=== PATIENT | male | born 1965 | race Caucasian/White ===

== ENCOUNTER 2017-02-23 12:34 | Outpatient (CLI) | payer BC | END 2017-02-23 12:35 | disposition home or self-care (01) | LOC: ULT 12:34 | PROVIDERS: ATTEND Internal Medicine Hematology & Oncology | DX: Z51.11 Encounter for antineoplastic chemotherapy (principal); C15.5 Malignant neoplasm of lower third of esophagus; R11.2 Nausea with vomiting, unspecified; Z51.89 Encounter for other specified aftercare; Z79.899 Other long term (current) drug therapy | CPT/HCPCS: 93306 ==

== ENCOUNTER 2017-08-14 13:46 | Outpatient (CLI) | payer OTHER | END 2017-08-14 13:47 | disposition home or self-care (01) | LOC: ULT 13:46 | PROVIDERS: ATTEND Internal Medicine Hematology & Oncology | DX: C15.5 Malignant neoplasm of lower third of esophagus (principal); I07.1 Rheumatic tricuspid insufficiency; Z79.899 Other long term (current) drug therapy | CPT/HCPCS: 93306 ==

== ENCOUNTER 2018-02-08 03:54 | Emergency (ER) | payer OTHER ==
[2018-02-08] MEDS ORDERED: Ondansetron PF 4 MG/2 ML Vial ONE (04:24)
[2018-02-08 04:54] LABS: Band 26 % (5-11); Hemoglobin 15.3 g/dL (14.0-18.0); Lymphocytes 13 % (21-51); MDiff Complete? YES; Mean Corpuscular HGB CONC 35.1 g/dL (32.0-36.0); Mean Corpuscular Hemoglobin 33.1 pg (27.0-31.0); Mean Corpuscular Volume 94.3 fL (78.0-98.0); Monocytes 13 % (0-10); Neutrophil 47 % (42-75); Platelet Count 175 thou/uL (130-400); RBC Distribution Width 9.7 % (11.5-14.5); Reactive Lymphocytes 1 % (0-10); Red Blood Cell (RBC) Count 4.62 mill/uL (4.70-6.10); White Blood Cell (WBC) Count 7.5 thou/uL (4.8-10.8)
[2018-02-08 04:56] LABS: ALT (SGPT) 24 U/L (8-55); AST (SGOT) 52 U/L (5-34); Albumin 4.5 g/dL (3.5-5.0); Alkaline Phosphatase 50 U/L (40-150); Anion Gap 17 mmol/L (10-20); BUN (Urea Nitrogen) 7 mg/dL (8.4-25.7); Bilirubin, Total 0.7 mg/dL (0.2-1.2); Calc. Creatinine Clearance 0 mL/min (70-130); Calcium 9.4 mg/dL (7.8-10.44); Carbon Dioxide 24 mmol/L (22-29); Chloride 94 mmol/L (98-107); Estimated GFR-MDRD 83; Globulin 3.2 g/dL (2.4-3.5); Glucose 95 mg/dL (70-105); Lipase 20 U/L (8-78); Protein, Total 7.7 g/dL (6.0-8.3); Sodium 131 mmol/L (136-145)
[2018-02-08] MEDS ORDERED: Metoclopramide HCl 10 MG/2 ML VIAL ONE (05:46)
[2018-02-08] MEDS ORDERED: Acetaminophen 500 MG TAB ONE (06:25)
[2018-02-08] MEDS ORDERED: Iopamidol 370 76% 100 ML VIAL ONE (09:00)
--- NOTE | 2018-02-08 09:18 | CT ---
PRELIMINARY REPORT/[facility]/EMERGENTY AFTER-HOURS PROCEDURE CT Abdomen and Pelvis With Intravenous Contrast EXAM DATE/TIME: 02/08/2018 4:37 AM CLINICAL HISTORY: 52 years old, male; Signs and symptoms; Nausea; Prior surgery; Surgery date: 6+ months; Surgery type: Esophageal CA in 2011; Patient HX: Nausea for 3 days with dry heaving, PT unable to vomit due to ken michael in 2011 due to esophageal CA. Hs of appendectomy and vasectomy TECHNIQUE: Axial computed tomography images of the abdomen and pelvis with intravenous contrast. All CT scans at this facility use at least one of these dose optimization techniques: automated expos ure control; mA and/or kV adjustment per patient size (includes targeted exams where dose is matched to clinical indication); or iterative reconstruction. Coronal reformatted images were created and rev iewed. COMPARISON: No relevant prior studies available. FINDINGS: Lower thorax: The visualized portions of the lung bases are normal. ABDOMEN: Liver: There are no focal liver lesions identified. Gallbladder and bile ducts: The gallbladder is normal. There is no evidence of biliary ductal dilatio n. Pancreas: The pancreas appears normal. Spleen: The spleen is normal. Adrenals: The adrenal glands are normal. Kidneys and ureters: The kidneys appear normal. Stomach and bowel: There is gastric pull-through the stomach with debris within the mediastinal segme nt. The duodenum is unremarkable. There is fluid seen throughout the small bowel possibly from enteri tis. Moderate diverticulosis is present in the sigmoid and descending colon. Appendix: No appendix is specifically identified. No associated signs to suggest acute appendicitis. PELVIS: Bladder: The bladder is normal. Reproductive: The prostate gland and seminal vesicles are normal. ABDOMEN and PELVIS: Intraperitoneal space: Normal. No free air. No significant fluid collection. Bones/joints: No acute fracture. No dislocation. Soft tissues: Unremarkable. Vasculature: Normal. No abdominal aortic aneurysm. Lymph nodes: Normal. No enlarged lymph nodes. IMPRESSION: There is fluid seen throughout the small bowel possibly from enteritis. Correlate clinically. Thank you for allowing us to participate in the care of your patient. Dictated and Authenticated by: Martin Daily MD 02/08/2018 6:28 AM Central Time ([place] & [place]) FINAL REPORT: CT ABDOMEN WITH IV CONTRAST CT PELVIS WITH IV CONTRAST: I agree with the preliminary report given by Dr. Daily of [facility]. No evidence of metastatic disease is seen compared to exam of 12-09-16. POS: [facility]
--- NOTE | 2018-02-08 09:19 | CT ---
PRELIMINARY REPORT/[facility]/EMERGENTY AFTER-HOURS PROCEDURE CT Angiography Chest With Intravenous Contrast EXAM DATE/TIME: 02/08/2018 4:37 AM CLINICAL HISTORY: 52 years old, male; Signs and symptoms; Other: Syncope; Prior surgery; Surgery date: 6+ months; Surge ry type: Esophageal surgery due to cancer in 2011; Patient HX: Dry heaving and syncope, abnormal ekg TECHNIQUE: Axial computed tomographic angiography images of the chest with intravenous contrast using CT angiogr aphy protocol. All CT scans at this facility use at least one of these dose optimization techniques: automated expos ure control; mA and/or kV adjustment per patient size (includes targeted exams where dose is matched to clinical indication); or iterative reconstruction. Coronal reformatted images were created and reviewed. MIP reconstructed images were created and reviewed. CONTRAST: 90 ml of [id number] administered intravenously. COMPARISON: No relevant prior studies available. FINDINGS: Tubes, catheters and devices: There is a left-sided portacatheter is in satisfactory position. Pulmonary arteries: There is no evidence of peripheral filling defects within the pulmonary arterial circulation to suggest pulmonary embolism. Aorta: The aorta is normal. There is no evidence of aortic dissection, leak, rupture, or other compli cations. Lungs: There is nonspecific hazy groundglass opacification within the RIGHT upper and lower lobe. Pleural space: Normal. No pneumothorax. No pleural effusion. Heart: Normal. No cardiomegaly. No pericardial effusion. Mediastinum: The trachea is normal. Thyroid: The thyroid gland is normal. Bones/joints: Unremarkable. No acute fracture. Soft tissues: Unremarkable. Lymph nodes: Unremarkable. No enlarged lymph nodes. Stomach and bowel: There is gastric pull through of the stomach. IMPRESSION: There is no CT evidence of acute pulmonary embolism. Post esophageal resection with gastric pull-through of the stomach. Thank you for allowing us to participate in the care of your patient. Dictated and Authenticated by: Martin Daily MD 02/08/2018 6:33 AM Central Time ([place] & [place]) FINAL REPORT CT PULMONARY ANGIOGRAM WITH IV CONTRAST AND 3D POSTPROCESSING: Date: 02/08/18 FINDINGS/IMPRESSION: I agree with the preliminary report given by Sera. POS: [facility]
== END 2018-02-08 07:04 | disposition home or self-care (01) ==
LOC: SCSER 03:54
DX: K52.9 Noninfective gastroenteritis and colitis, unspecified (principal); F41.9 Anxiety disorder, unspecified; F17.210 Nicotine dependence, cigarettes, uncomplicated; Z79.899 Other long term (current) drug therapy
CPT/HCPCS: 71275; 74177; 80053; 83605; 83690; 85025; 93005; 96361; 96374; 96375; J2405; J2765

== ENCOUNTER 2018-02-11 13:46 | Outpatient (CLI) | payer OTHER ==
--- NOTE | 2018-02-11 16:37 | MRI ---
BRAIN MRI WITH AND WITHOUT CONTRAST: DATE: 02-11-18 Comparison: None. History: Syncope, esophageal cancer. Technique: Multiplanar, multisequence MRI images were obtained of the brain with and without contrast . FINDINGS: Motion artifact significantly limits detailed assessment. The diffusion weighted imaging demonstrates no evidence for acute infarction. The axial gradient echo imaging demonstrates no evidence for intracranial hemorrhage. Arterial flow voids at the axial levels of the skull base grossly unremarkable on the T2 weighted vernon ging, limited by motion artifact. No midline shift, mass effect, or ventricular enlargement. Motion limited post contrast imaging demonstrates no abnormal enhancement within the brain parenchyma . Osseous detail is limited on the basis of motion. IMPRESSION: Grossly unremarkable motion limited brain MRI as detailed above. Results were discussed with Harmony Norris at approximately 4 p.m. 02-11-18. Code CR POS: OFF
== END 2018-02-11 13:47 | disposition home or self-care (01) ==
LOC: MRI 13:46
PROVIDERS: ATTEND Internal Medicine Hematology & Oncology
DX: R55 Syncope and collapse (principal); R56.9 Unspecified convulsions; C15.5 Malignant neoplasm of lower third of esophagus; R53.1 Weakness; R42 Dizziness and giddiness; R11.0 Nausea
CPT/HCPCS: 36415; 70553; 80053; 82248; 83615; 84100; 84550

== ENCOUNTER 2018-06-07 12:39 | Outpatient (CLI) | payer OTHER | END 2018-06-07 12:40 | disposition home or self-care (01) | LOC: ULT 12:39 | PROVIDERS: ATTEND Internal Medicine Hematology & Oncology | DX: Z51.11 Encounter for antineoplastic chemotherapy (principal); C15.5 Malignant neoplasm of lower third of esophagus; I08.1 Rheumatic disorders of both mitral and tricuspid valves; Z79.899 Other long term (current) drug therapy | CPT/HCPCS: 93306 ==

== ENCOUNTER 2019-01-04 13:25 | Outpatient (CLI) | payer OTHER | END 2019-01-04 13:26 | disposition home or self-care (01) | LOC: ULT 13:25 | PROVIDERS: ATTEND Internal Medicine Hematology & Oncology | DX: Z51.11 Encounter for antineoplastic chemotherapy (principal); C15.5 Malignant neoplasm of lower third of esophagus; I08.1 Rheumatic disorders of both mitral and tricuspid valves; Z79.899 Other long term (current) drug therapy | CPT/HCPCS: 93306 ==

== ENCOUNTER 2019-07-07 14:41 | Outpatient (CLI) | payer OTHER | END 2019-07-07 14:42 | disposition home or self-care (01) | LOC: ULT 14:41 | PROVIDERS: ATTEND Internal Medicine Hematology & Oncology | DX: Z51.11 Encounter for antineoplastic chemotherapy (principal); C15.5 Malignant neoplasm of lower third of esophagus; I08.3 Combined rheumatic disorders of mitral, aortic and tricuspid valves; Z79.899 Other long term (current) drug therapy | CPT/HCPCS: 93306 ==

== ENCOUNTER 2020-02-21 06:38 | Outpatient (CLI) | payer OTHER ==
[2020-02-21 13:37] LABS: #Eosinphils 0.1 10x3/uL (0.0-0.5); #Monocytes 0.7 10x3/uL (0.0-1.1); #Neutrophils 2.9 10x3/uL (1.5-8.4); %Basophils 0.6 % (0.0-2.0); %Eosinophils 1.4 % (0.0-6.0); %Lymphocytes 27.8 % (18.0-47.0); %Monocytes 13.2 % (0.0-10.0); %Neutrophils 56.8 % (40.0-75.0); Hemoglobin 14.1 g/dL (14.0-18.0); Mean Corpuscular HGB CONC 34.8 G/DL (32.0-36.0); Mean Corpuscular Hemoglobin 34.3 PG (27.0-33.0); Mean Corpuscular Volume 98.5 fl (80.0-100.0); Mean Platelet Volume 8.2 fl (7.4-10.4); Platelet Count 240 10x3/uL (130-400); RBC Distribution Width 10.9 % (11.5-14.5); Red Blood Cell (RBC) Count 4.11 10x6/uL (4.40-5.80); White Blood Cell (WBC) Count 5.1 10x3/uL (4.5-11.0)
[2020-02-21 23:43] LABS: SARS-CoV-2 MS2 Positive; SARS-CoV-2 N Gene Negative; SARS-CoV-2 S Gene Negative; SARS-CoV-2 by NAA Not Detected (NotDetected); SARS-CoV-2 orf1ab Negative
== END 2020-02-21 06:39 | disposition home or self-care (01) ==
LOC: LABBT 06:38
PROVIDERS: ATTEND Surgery
DX: Z01.818 Encounter for other preprocedural examination (principal); Z20.828 Contact with and (suspected) exposure to other viral communicable diseases; C15.9 Malignant neoplasm of esophagus, unspecified
CPT/HCPCS: 82378; 85025; 87635; 93005; 93010; U0003

== ENCOUNTER 2020-02-24 08:25 | Day surgery (SDC) | payer OTHER ==
[2020-02-22 14:36] VITALS: BMI 22.9
[2020-02-24] MEDS ORDERED: Lidocaine 1% w/Epinephrine 1:100K 20 ML VIAL ONE (09:58)
[2020-02-24] MEDS ORDERED: Bupivacaine 0.25% HCL 30 ML VIAL ONE (09:58)
[2020-02-24] MEDS ORDERED: Midazolam HCl 2 mg/2 ml Vial ONE (10:02)
[2020-02-24] MEDS ORDERED: Fentanyl 100 MCG/2 ML VIAL ONE (10:02)
[2020-02-24] MEDS ORDERED: PROPOFOL 200 MG/20 ML VIAL ONE (12:34)
--- NOTE | 2020-02-26 13:26 | OP ---
DATE OF PROCEDURE: 02/24/2020 PREOPERATIVE DIAGNOSIS: Completed chemo, history of esophageal cancer. PROCEDURE PERFORMED: Removal of MediPort. INDICATIONS: A 54-year-old male who has had an esophageal resection and treatment of esophageal cancer. He is in remission, no longer requires the MediPort. FINDINGS: Intact system. DESCRIPTION OF PROCEDURE: After informed consent was obtained, the patient was taken to the operating room, given total IV anesthesia, placed in supine position. The chest was prepped and draped in usual fashion. Local anesthesia was infiltrated subcutaneously and deep. A transverse incision was performed in the left upper chest. Subcu divided sharply. The port was dissected out, and the catheter removed. The tract was closed with a [id number] of 3-0 Vicryl, subcu reapproximated with interrupted 3-0 Vicryl, and the skin closed with a running subcuticular 4-0 Rapide. Steri-Strips applied. Sterile bandage applied. The patient tolerated the procedure well, transferred to Recovery in good condition. Sponge and needle count verified correct x2. Job ID: [id number]
== END 2020-02-24 11:40 | disposition home or self-care (01) ==
LOC: SDC 08:25
PROVIDERS: ATTEND Surgery
PROC: 0JPT0WZ Removal of Totally Implantable Vascular Access Device from Trunk Subcutaneous Tissue and Fascia, Open Approach (ICD-10-PCS; principal; 2020-02-24)
DX: Z45.2 Encounter for adjustment and management of vascular access device (principal); Z79.899 Other long term (current) drug therapy; Z85.01 Personal history of malignant neoplasm of esophagus
CPT/HCPCS: J0690; J2250; J2704; J3010; S0020

== ENCOUNTER 2024-01-18 15:18 | Outpatient (CLI) | payer BC | END 2024-01-18 15:19 | disposition home or self-care (01) | LOC: SCSRAD 15:18 | PROVIDERS: ATTEND Internal Medicine Hematology & Oncology | DX: M54.50 Low back pain, unspecified (principal); C15.5 Malignant neoplasm of lower third of esophagus; R11.2 Nausea with vomiting, unspecified; M47.816 Spondylosis without myelopathy or radiculopathy, lumbar region; M46.1 Sacroiliitis, not elsewhere classified | CPT/HCPCS: 72100; 72220 ==